=== PATIENT | male | born 1970 | race Caucasian/White ===

== ENCOUNTER 2020-08-10 18:49 | Emergency (ER) | payer MEDICAID ==
[~2020-08-10] VITALS: Ht 160 cm; Wt 100.0 kg
[2020-08-10 18:53] VITALS: BP 185/105
[2020-08-10] MEDS ORDERED: ACETAMINOPHEN 325MG TABLET PO ONE (21:00)
[2020-08-10] MEDS ORDERED: BENZ9GEL2 TP (21:03)
== END 2020-08-10 21:38 | disposition home or self-care (01) ==
LOC: ER 19:35
DX: K64.9 Unspecified hemorrhoids (principal); R03.0 Elevated blood-pressure reading, without diagnosis of hypertension
CPT/HCPCS: 99282